=== PATIENT | male | born 1985 | race Caucasian/White ===

== ENCOUNTER → 2017-04-30 | Outpatient (CLI) | payer MEDICAID ==
--- NOTE | 2017-04-30 17:06 | CT ---
EXAMINATION TYPE: CT abdomen pelvis w con DATE OF EXAM: 04/30/2017 COMPARISON: NONE HISTORY: 31 year-old male left sided mid abdominal pain for 1 year TECHNIQUE: Contiguous axial scanning of the abdomen and pelvis following administration of 100 ml Omn ipaque 300 IV contrast. Delayed images through the kidneys and coronal/sagittal reconstructions perf ormed. CT DLP: 453.3 mGycm Automated exposure control for dose reduction was used. FINDINGS: Heart is normal size without pericardial effusion. Lung bases clear without pleural effusion. Some focal fat along the anterior falciform ligament. Portal venous system is patent. No biliary duct al dilatation. Gallbladder, adrenal glands, spleen, and pancreas appear within normal limits. Symmetric uptake and excretion of contrast from both kidneys. There is a 1.1 cm cortical cyst in the left upper pole. Scattered nonenlarged and borderline sized mesenteric lymph nodes measuring up to 6 mm are noted in t he midabdomen. No retroperitoneal lymphadenopathy. No dilated small bowel, free fluid, or free air. Normal appendix. Oral contrast progressed to the rectum. No pericolonic inflammatory change. Bladder partially urine distended. No abnormal fluid collection in the pelvis or pelvic lymphadenopat hy. Bones: No osseous destructive process. IMPRESSION: SCATTERED NONENLARGED AND BORDERLINE SIZE MESENTERIC LYMPH NODES LIKELY REACTIVE/POST INFLAMMATORY. C ORRELATE FOR THE POSSIBILITY OF MESENTERIC ADENITIS. OTHERWISE, NO SPECIFIC ABNORMALITY SEEN.
== END | disposition home or self-care (01) ==
LOC: RADCTMAIN 13:59
PROVIDERS: ATTEND Family Medicine
DX: R10.9 Unspecified abdominal pain (principal)
CPT/HCPCS: 74177; Q9967

== ENCOUNTER 2021-01-02 08:49 | Day surgery (SDC) | payer MEDICAID ==
[2021-01-01 09:47] VITALS: BMI 23.6
[~2021-01-02 08:49] MED LIST: LACTATED RINGERS 1,000 ML IV SCH; LIDOCAINE 1% (10MG/ML) FOR IV START INTRADERMA PRN
[2021-01-02] MEDS ORDERED: LIDOCAINE 1% (10MG/ML) FOR IV START INTRADERMA ONE (09:29)
[2021-01-02 09:31] VITALS: TEMP 97
[2021-01-02] MEDS ORDERED: fentaNYL (PF) 50 MCG/ML 2 ML AMP ONE (09:52)
[2021-01-02] MEDS ORDERED: PROPOFOL 10 MG/ML 20 ML VIAL IV ONE (09:52)
[2021-01-02] MEDS ORDERED: MIDAZOLAM 2 MG/2 ML VIAL ONE (09:52)
--- NOTE | 2021-01-02 10:14 | P.PCN ---
Date of Procedure: 01/02/21 Procedure(s) Performed: BRIEF HISTORY: Patient is a 35-year-old, pleasant, white male scheduled for an upper endoscopy as a part of evaluation of long-standing history of GERD of 10 years duration. Presently on Prilosec 20 mg daily with some improvement in his symptoms. PROCEDURE PERFORMED: Esophagogastroduodenoscopy. PREOPERATIVE DIAGNOSIS: And history of GERD. IV sedation per anesthesia. PROCEDURE: After informed consent was obtained, the patient was brought into the endoscopy unit. IV sedation was administered by Anesthesia under continuous monitoring. Initially the Olympus GIF-140 video endoscope was inserted into the mouth. Esophagus intubated without any difficulty. It was gradually advanced into the stomach and duodenum and carefully examined. The bulb and the second part of the duodenum appeared normal. The scope at this time was withdrawn to the stomach, adequately insufflated with air, and upon careful examination, mucosa of the antrum, body, cardia and the fundus appeared normal. The scope was then withdrawn into the esophagus. The GE junction was located at 39 cm from the incisors. Small sliding type hiatal hernia noted. The esophagus appeared normal. There were no erosions or ulcerations seen and the patient tolerated the procedure well. IMPRESSION: 1. Small hiatal hernia 2. No evidence of esophagitis or Shankar's esophagus. RECOMMENDATIONS: The findings of this examination were discussed with the patient as well as his family. He was advised to increase omeprazole to 20 mg daily and follow antireflux measures..
[2021-01-02 10:20] VITALS: RESP 16
[2021-01-02 10:34] VITALS: BP 127/69; PULSE 77
== END 2021-01-02 11:04 | disposition home or self-care (01) ==
LOC: ORWHC2ENDO 08:49
PROVIDERS: ATTEND Internal Medicine Gastroenterology
DX: K21.9 Gastro-esophageal reflux disease without esophagitis (principal); K44.9 Diaphragmatic hernia without obstruction or gangrene
CPT/HCPCS: 43235; J2250; J3010; J2704

== ENCOUNTER 2021-02-18 10:30 | Emergency (ER) | payer MEDICAID ==
--- NOTE | 2021-02-18 13:25 | ED ---
URI HPI - General Chief Complaint: Upper Respiratory Infection Stated Complaint: Covid+/antibodies Time Seen by Provider: 02/18/21 13:07 Source: patient, RN notes reviewed Mode of arrival: ambulatory Limitations: no limitations - History of Present Illness Initial Comments: This a 35-year-old male presents emergency Department chief complaint of COVID-19. Patient sent here for monoclonal antibodies. Patient states he has fever chills cough congestion symptoms started on Thursday. Patient tested positive. Patient is a daily smoker. Patient denies any exertional symptoms only pain no nausea vomiting diarrhea constipation or other complaints. - Related Data Home Medications Medication Instructions Recorded Confirmed Omeprazole 20 mg PO DAILY 01/01/21 01/01/21 Allergies Allergy/AdvReac Type Severity Reaction Status Date / Time amoxicillin Allergy Swelling/hi Verified 02/18/21 13:03 ves Review of Systems ROS Statement: Those systems with pertinent positive or pertinent negative responses have been documented in the HPI. ROS Other: All systems not noted in ROS Statement are negative. Past Medical History Past Medical History: GERD/Reflux Additional Past Medical History / Comment(s): hx migraines, "stomach discomfort", History of Any Multi-Drug Resistant Organisms: None Reported Past Surgical History: Adenoidectomy, Tonsillectomy Additional Past Surgical History / Comment(s): recontructive nasal surgery (Fx) Past Anesthesia/Blood Transfusion Reactions: No Reported Reaction Past Psychological History: No Psychological Hx Reported Smoking Status: Never smoker Past Alcohol Use History: Rare Past Drug Use History: None Reported - Past Family History Mother Family Medical History: No Reported History General Exam Limitations: no limitations General appearance: alert, in no apparent distress Head exam: Present: atraumatic, normocephalic, normal inspection Eye exam: Present: normal appearance, PERRL, EOMI. Absent: scleral icterus, conjunctival injection, periorbital swelling ENT exam: Present: normal exam, normal oropharynx, mucous membranes moist Neck exam: Present: normal inspection, full ROM. Absent: tenderness, meningismus, lymphadenopathy Respiratory exam: Present: normal lung sounds bilaterally. Absent: respiratory distress, wheezes, rales, rhonchi, stridor Cardiovascular Exam: Present: regular rate, normal rhythm, normal heart sounds. Absent: systolic murmur, diastolic murmur, rubs, gallop, clicks GI/Abdominal exam: Present: soft, normal bowel sounds. Absent: distended, tenderness, guarding, rebound, rigid Neurological exam: Present: alert, oriented X3, CN II-XII intact. Absent: motor sensory deficit Course Vital Signs 02/18/21 12:57 Temperature 99.1 F Pulse Rate 99 Respiratory 20 Rate Blood Pressure 120/84 O2 Sat by Pulse 100 Oximetry Medical Decision Making - Medical Decision Making Patient received monoclonal he otherwise be discharged in stable condition return parameters discussed. Disposition Clinical Impression: COVID-19 Disposition: HOME SELF-CARE Condition: Stable Instructions (If sedation given, give patient instructions): Coronavirus Disease 2019 (COVID-19) Additional Instructions: Please return to the Emergency Department if symptoms worsen or any other concerns. Is patient prescribed a controlled substance at d/c from ED?: No Referrals: Pankaj Pappas III, MD [Primary Care Provider] - 1-2 days Time of Disposition: 13:25
[2021-02-18] MEDS ORDERED: SODIUM CHLORIDE 0.9% 50 ML IVPB ONE (14:00)
[2021-02-18] MEDS ORDERED: BAMLANIVIMAB (EUA) 700 MG, ETESEVIMAB (EUA) 1,400 MG in SODIUM CHLORIDE 0.9% 50 ML IVPB ONE (14:00)
[2021-02-18 16:23] VITALS: BP 124/68; PULSE 70; RESP 16; TEMP 99.2
== END 2021-02-18 16:22 | disposition home or self-care (01) ==
LOC: EC 10:30
DX: U07.1 COVID-19 (principal); F17.200 Nicotine dependence, unspecified, uncomplicated; K21.9 Gastro-esophageal reflux disease without esophagitis; Z79.899 Other long term (current) drug therapy; Z88.0 Allergy status to penicillin
CPT/HCPCS: 99283; 96365; J3490

== ENCOUNTER → 2021-03-02 | Outpatient (CLI) | payer MEDICAID ==
[2021-03-02 18:19] LABS: ALT 18 U/L (10-49); AST 13 U/L (14-35); African American GFR (CKD) 114.1 (60.0-200.0); Albumin/Globulin Ratio 2.78 (1.60-3.17); Alkaline Phosphatase 61 U/L (41-126); Blood Urea Nitrogen 13.7 mg/dL (9.0-27.0); Calcium 10.1 mg/dL (8.7-10.3); Carbon Dioxide 26.2 mmol/L (20.0-27.5); Chloride 103 mmol/L (96-109); Chol/HDL Ratio 6.39 Ratio; Globulin 1.8 g/dL (1.6-3.3); Glucose 92 mg/dL (70-110); LDL Cholesterol,Calculated 185.3 mg/dL (0.0-131.0); Lipase 45 U/L (14-60); Non-African American GFR(CKD) 98.5 (60.0-200.0); Potassium 4.8 mmol/L (3.5-5.5); Sodium 141 mmol/L (135-145); Total Protein 6.8 g/dL (6.2-8.2)
== END | disposition home or self-care (01) ==
LOC: LABWHC1 09:32
PROVIDERS: ATTEND Family Medicine
DX: Z13.220 Encounter for screening for lipoid disorders (principal); Z13.1 Encounter for screening for diabetes mellitus; R10.11 Right upper quadrant pain
CPT/HCPCS: 36415; 80053; 80061; 83690

== ENCOUNTER → 2021-03-05 | Outpatient (CLI) | payer MEDICAID ==
--- NOTE | 2021-03-05 14:56 | US ---
EXAMINATION TYPE: US abdomen complete DATE OF EXAM: 03/05/2021 COMPARISON: CT abdomen and pelvis April 30, 2017 CLINICAL HISTORY: R10.11 RUQ pain. EXAM MEASUREMENTS: Liver Length: 14.7 cm Gallbladder Wall: 0.2 cm CBD: 0.3 cm Spleen: 11.5 cm Right Kidney: 10.9x5.3x5.5 cm Left Kidney: 10.6x4.8x5.4 cm Pancreas: Obscured by bowel gas Liver: wnl Gallbladder: 2 Polyps noted largest 0.3cm Evidence for sonographic Hong's sign: No CBD: wnl Spleen: wnl Right Kidney: wnl Left Kidney: Superior cyst 2.2x1.9x2.2cm Upper IVC: wnl Abd Aorta: wnl The visualized liver is homogenous. The visualized abdominal aorta is within normal limits. There is no evidence of shadowing mobile cholelithiasis. Possible 2 tiny nonmobile wall based polyps . Common bile duct is unremarkable. Suboptimal evaluation of pancreas and IVC due to overlying bowel gas on i nitial images. The spleen is normal in size. Kidneys are symmetric and free of hydronephrosis. Inci dental 2.2 cm simple appearing thin-walled cyst upper pole level left kidney redemonstrated correspon ding to CT coronal image 56 likely slightly larger in size. IMPRESSION: Suboptimal study without acute finding identified to account for patient's symptoms of ri ght upper quadrant pain.
== END | disposition home or self-care (01) ==
LOC: RADUSWWP 14:07
PROVIDERS: ATTEND Family Medicine
DX: R10.11 Right upper quadrant pain (principal)
CPT/HCPCS: 76700

== ENCOUNTER → 2021-03-13 | Outpatient (CLI) | payer MEDICAID ==
--- NOTE | 2021-03-13 09:41 | NM ---
EXAMINATION TYPE: NM hepatobiliary w EF DATE OF EXAM: 03/13/2021 COMPARISON: Ultrasound abdomen 03/05/2021 HISTORY: Right upper quadrant pain TECHNIQUE: After the intravenous administration of 4.4 mCi Tc 99m Mebrofenin hepatobiliary scintigrap hy is performed. Immediate images post injection. FINDINGS: There is satisfactory initial accumulation of tracer by the liver. The gallbladder is visualized wit hin 8 minutes. The small bowel activity is noted within 28 minutes. At one hour 8 ounces of oral en sure plus is given to mimic CCK and gallbladder ejection fraction is calculated at 75 %, in the michelle l range. Therefore there is no scintigraphic evidence of cystic or common bile duct obstruction to s uggest acute cholecystitis or gallbladder dyskinesia. IMPRESSION: Exam is within normal limits.
== END | disposition home or self-care (01) ==
LOC: RADNMMAIN 06:45
PROVIDERS: ATTEND Family Medicine
DX: R10.11 Right upper quadrant pain (principal)
CPT/HCPCS: 78226; A9537